=== PATIENT | male | born 1990 | race Caucasian/White ===

== ENCOUNTER 2017-07-19 02:34 | Emergency (ER) | payer BC ==
[2017-07-19 03:03] VITALS: BP 128/76; PULSE 68; RESP 16; TEMP 97.6; O2SAT 99
[2017-07-19 03:04] VITALS: BMI 25.2
--- NOTE | 2017-07-19 03:10 | ED PDOC ---
Arrival/HPI - General Historian: Patient - History of Present Illness Time/Duration: Prior to Arrival, > week Symptom Onset: Sudden Symptom Course: Worsening Quality: Burning Severity Level: Moderate Context: Work <Chanel Manuel - Last Filed: 07/19/17 03:14> <Patrick Almaguer - Last Filed: 07/19/17 03:32> - General Chief Complaint: Abnormal Skin Integrity Time Seen by Provider: 07/19/17 03:06 - History of Present Illness Narrative History of Present Illness (Text): 07/19/17 03:07 26M w/no sig PMH evaluated for diffuse rash x 1 week. 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 Pt noted 3 lesions on medial aspect of right arm on Thursday with subsequent spread of red, pruritic lesions over both arms and legs. Pt tried hydrocortisone cream without alleviation. PMH: Denies PSH: Denies All: Cats SH: occasional ETOH use, occasional tobacco use, denies illicit drug use PMD: Johny (Chanel Manuel) Past Medical History - Provider Review Nursing Documentation Reviewed: Yes - Infectious Disease Hx of Infectious Diseases: None - Psychiatric Hx Depression: No Hx Emotional Abuse: No Hx Physical Abuse: No Hx Substance Use: No - Suicidal Assessment Feels Threatened In Home Enviroment: No <Chanel Manuel - Last Filed: 07/19/17 03:14> Family/Social History - Physician Review Nursing Documentation Reviewed: Yes Family/Social History: No Known Family HX Smoking Status: Never Smoked Hx Alcohol Use: No Hx Substance Use: No Hx Substance Use Treatment: No <Chanel Manuel - Last Filed: 07/19/17 03:14> Allergies/Home Meds <Chanel Manuel - Last Filed: 07/19/17 03:14> <Patrick Almaguer - Last Filed: 07/19/17 03:32> Allergies/Adverse Reactions: Allergies No Known Allergies Allergy (Verified 07/19/17 03:03) Review of Systems - Physician Review All systems were reviewed & negative as marked: Yes - Review of Systems Constitutional: Normal. absent: Fatigue, Fevers Eyes: Normal. absent: Vision Changes ENT: Normal. absent: Sore Throat Respiratory: Normal. absent: SOB, Cough Cardiovascular: Normal. absent: Chest Pain Gastrointestinal: Normal. absent: Abdominal Pain Musculoskeletal: Normal Skin: Rash, Pruritis, Skin Lesions. absent: Normal Neurological: Normal. absent: Headache, Dizziness <Chanel Manuel - Last Filed: 07/19/17 03:14> Physical Exam Vital Signs Reviewed: Yes Temperature: Afebrile Blood Pressure: Normal Pulse: Regular Respiratory Rate: Normal Appearance: Positive for: Well-Appearing, Non-Toxic, Comfortable Pain Distress: Mild Mental Status: Positive for: Alert and Oriented X 3 - Systems Exam Head: Present: Atraumatic, Normocephalic Extroacular Muscles: Present: EOMI Conjunctiva: Present: Normal Mouth: Present: Moist Mucous Membranes Nose (External): Present: Atraumatic Neck: Present: Normal Range of Motion Respiratory/Chest: Present: Clear to Auscultation, Good Air Exchange. No: Respiratory Distress, Accessory Muscle Use, Wheezes, Rales, Rhonchi Cardiovascular: Present: Regular Rate and Rhythm, Normal S1, S2. No: Murmurs Abdomen: Present: Normal Bowel Sounds. No: Tenderness, Distention, Peritoneal Signs Back: Present: Normal Inspection Upper Extremity: Present: Other (erythematous macular rash with some vesicles). No: Normal Inspection, Cyanosis Lower Extremity: Present: Other (erythematous macular rash with some vesicles, some vesicles with serous drainage). No: Normal Inspection Neurological: Present: GCS=15, CN II-XII Intact, Speech Normal Skin: Present: Warm, Dry, Rashes, Erythematous. No: Normal Color Psychiatric: Present: Alert, Oriented x 3, Normal Insight, Normal Concentration <Chanel Manuel - Last Filed: 07/19/17 03:14> Vital Signs Temp Pulse Resp BP Pulse Ox 07/19/17 02:35 97.6 F 68 16 128/76 99 Medical Decision Making <Chanel Manuel - Last Filed: 07/19/17 03:14> <Patrick Almaguer - Last Filed: 07/19/17 03:32> ED Course and Treatment: 07/19/17 03:12 Pt seen/evaluated, will give steroid injection with Benadryl (Chanel Manuel) Impression: Pt seen and evaluated with certified medical coder. Pt presented pruritic rash to bilatera arms and legs for 1 week after gardening. Aware and agree with HPI, clinical findings, plan, and management. Plan: -- Benadryl -- Decadron -- Reassess and disposition (Patrick Almaguer) - Medication Orders Current Medication Orders: Discontinued Medications Dexamethasone (Decadron Inj) 10 mg IM STAT STA Stop: 07/19/17 03:07 Diphenhydramine HCl (Benadryl) 50 mg PO STAT STA Stop: 07/19/17 03:07 - PA / DRAWING IN HAND / Resident Statement KARINA has reviewed & agrees with the documentation as recorded. KARINA has examined the patient and agrees with the treatment plan. <Patrick Almaguer - Last Filed: 07/19/17 03:32> Disposition/Present on Arrival - Present on Arrival Any Indicators Present on Arrival: No History of DVT/PE: No History of Uncontrolled Diabetes: No Urinary Catheter: No History of Decub. Ulcer: No History Surgical Site Infection Following: None - Disposition Have Diagnosis and Disposition been Completed?: Yes Disposition Time: 03:12 Patient Plan: Discharge <Chanel Manuel - Last Filed: 07/19/17 03:14> <Patrick Almaguer - Last Filed: 07/19/17 03:32> - Disposition Diagnosis: Rash of body Disposition: HOME/ ROUTINE Patient Problems: Current Active Problems Problem Status Onset Rash of body Acute Condition: STABLE Discharge Instructions (ExitCare): Urticaria (ED), Poison Martha (ED), Acute Rash (ED) Additional Instructions: Use Calamine lotion to rash, take Benadryl as needed. Prescriptions: Methylprednisolone [Medrol Dose Pack (21 tabs)] See Taper PO DAILY #21 mg Referrals: Codey Pierce MD [Staff Provider] - Follow up with primary Forms: [employer] ([place]ian)
== END 2017-07-19 03:38 | disposition home or self-care (01) ==
LOC: ED 02:34
DX: R21 Rash and other nonspecific skin eruption (principal)
CPT/HCPCS: 96372; 99281; J1100